=== PATIENT | male | born 1960 | race Caucasian/White ===

== ENCOUNTER 2016-10-21 05:29 | Inpatient (IN) | payer OTHER, MEDICARE ==
[~2016-10-21] VITALS: Ht 180.3 cm; Wt 180.0 kg
[~2016-10-21 05:29] MED LIST: ATOR10TA15 PO; FURO1TAB62 PO; GNP5TAB6 PO; LISI30TA4 PO; POTA99TA PO; TRAZ50TA12 PO; VERA40TA PO; ZOLO50TA PO
[2016-10-21] MEDS ORDERED: INSULIN HUMAN REGULAR 1,000 UNITS/10 ML VIAL SQ PRN (06:15)
[2016-10-21] MEDS ORDERED: CHLORHEXIDINE GLUCONATE 2 % 1 PACK (2 CLOTHS) TOPICAL PRN (06:15)
[2016-10-21] MEDS ORDERED: LACTATED RINGER'S 1000 ML IV PRN (06:15)
[2016-10-21] MEDS ORDERED: SODIUM CHLORID 0.9% 500 ML IV PRN (06:15)
[2016-10-21] MEDS ORDERED: METOPROLOL TARTRATE 25 MG TAB PO PRN (06:15)
[2016-10-21] MEDS ORDERED: POVIDONE IODINE 5% (ANTISEPSIS KIT) 4 APPLICATIONS EACH NARE PRN (06:15)
[2016-10-21 06:28] VITALS: BP 150/89; PULSE 79; RESP 18; TEMP 98.1; O2SAT 96
[2016-10-21] MEDS ORDERED: ONDANSETRON HCL 4 MG/2 ML VIAL IV PUSH SCH (06:30)
[2016-10-21] MEDS ORDERED: SCOPOLAMINE 1.5 MG PATCH T-DERMAL SCH (06:30)
[2016-10-21] MEDS ORDERED: ACETAMINOPHEN 1000 MG/100 ML VIAL IV SCH (06:30)
[2016-10-21] MEDS ORDERED: APREPITANT 40 MG CAP PO SCH (06:30)
[2016-10-21] MEDS ORDERED: metroNIDAZOLE 500 MG INJ 100 ML IV SCH (06:30)
[2016-10-21] MEDS ORDERED: ceFAZolin 2 GM PREMIX 50 ML IV SCH (06:30)
[2016-10-21] MEDS ORDERED: METOCLOPRAMIDE HCL 10 MG/2 ML VIAL ONE (07:10)
[2016-10-21] MEDS ORDERED: FAMOTIDINE 20 MG/2 ML VIAL ONE (07:10)
[2016-10-21] MEDS ORDERED: DEXAMETHASONE SOD PHOS 4 MG/ML VIAL ONE (07:10)
[2016-10-21] MEDS ORDERED: MIDAZOLAM HCL 2 MG/2 ML VIAL ONE (07:10)
[2016-10-21] MEDS ORDERED: BUPIVACAINE/EPINEPHRINE 0.25% PF 30 ML VIAL ONE (07:13)
[2016-10-21] MEDS ORDERED: METHYLENE BLUE 100 MG/10 ML VIAL OTHER ONE (09:00)
[2016-10-21] MEDS ORDERED: DO NOT ADM ANY ANTICOAGULANT DRUGS PRN (09:21)
[2016-10-21] MEDS ORDERED: *ONDANSETRON 4 MG VIAL PERIprocedural Use ONLY ONE (09:25)
[2016-10-21] MEDS ORDERED: fentaNYL CITRATE 250 MCG/5 ML AMP ONE (09:30)
[2016-10-21] MEDS ORDERED: *ENALAPRILAT 1.25 MG/ML VIAL PERIprocedural Use ONLY ONE ×2 (09:44→10:48)
[2016-10-21] MEDS ORDERED: PROMETHAZINE HCL 25 MG SUPP RECTAL ONE ×2 (10:02→11:00)
[2016-10-21] MEDS ORDERED: *LABETALOL HCL 100 MG/20 ML VIAL PERIprocedural Use ONLY ONE (10:06)
[2016-10-21] MEDS ORDERED: *morphine SULFATE 8 MG/ML PERIprocedure ONLY ONE (10:20)
[2016-10-21] MEDS ORDERED: LACTATED RINGER'S 1000 ML INJ 1,000 ML IV ONE (12:00)
[2016-10-21] MEDS ORDERED: NEOSTIGMINE 3 MG/3 ML SYR IV ONE (12:00)
[2016-10-21] MEDS ORDERED: PROPOFOL 200 MG/20 ML AMP IV ONE (12:00)
[2016-10-21] MEDS: 1/2 NS + KCL 20 MEQ INJ 1,000 ML IV SCH ×3 (12:50→20:31)
[2016-10-21] MEDS ORDERED: Post-op Orders (for Pharmacy) MISC OTHER ONE (13:00)
[2016-10-21] MEDS ORDERED: diphenhydrAMINE HCL 50 MG/ML VIAL IV PRN (13:00)
[2016-10-21] MEDS ORDERED: NALOXONE HCL 0.4 MG/ML AMP IV PRN (13:00)
[2016-10-21] MEDS ORDERED: diphenhydrAMINE HCL ELIXIR 12.5 MG/5 ML CUP PO PRN (13:00)
[2016-10-21] MEDS ORDERED: MORPHINE SULFATE 30 MG/30 ML PCA IV SCH (13:00)
[2016-10-21] MEDS ORDERED: ONDANSETRON HCL 4 MG/2 ML VIAL IV PRN (13:00)
[2016-10-21] MEDS ORDERED: SODIUM CHLORIDE 0.9% FLUSH 10 ML FLUSH IV FLUSH PRN (13:00)
[2016-10-21] MEDS: PCA - TOTAL MG MORPHINE DELIVERED PER SHIFT SCH ×2 (14:00→22:00)
[2016-10-21] MEDS: METOCLOPRAMIDE HCL 10 MG/2 ML VIAL IV PUSH SCH ×2 (15:19→18:32)
[2016-10-21] MEDS: metroNIDAZOLE 500 MG INJ 100 ML IV SCH ×2 (15:19→23:27)
[2016-10-21] MEDS: ENOXAPARIN SODIUM 40 MG/0.4 ML SYRINGE SQ SCH (15:20)
[2016-10-21 16:00] VITALS: BP 164/80; PULSE 72; RESP 17; TEMP 97.5; O2SAT 93
[2016-10-21] MEDS: RESP: ALBUTEROL 2.5 MG/3 ML NEB (SCH) INH ×2 (17:16→22:05)
[2016-10-21 20:30] VITALS: BP 158/83; PULSE 72; RESP 18; TEMP 96.6; O2SAT 97
[2016-10-21] MEDS: SODIUM CHLORIDE 0.9% FLUSH 10 ML FLUSH IV FLUSH SCH (20:31)
[2016-10-21 23:55] VITALS: BP 147/72; PULSE 78; RESP 20; TEMP 98.4; O2SAT 96
[2016-10-22] VITALS (8 sets, daily range): BP systolic 141–192; BP diastolic 73–93; PULSE 67–84; RESP 17–19; TEMP 96.7–98.5; O2SAT 94–98
[2016-10-22] MEDS: METOCLOPRAMIDE HCL 10 MG/2 ML VIAL IV PUSH SCH ×2 (00:25→06:18)
[2016-10-22] MEDS: RESP: ALBUTEROL 2.5 MG/3 ML NEB (SCH) INH ×7 (01:15→23:23)
[2016-10-22] MEDS: 1/2 NS + KCL 20 MEQ INJ 1,000 ML IV SCH ×5 (01:17→19:38)
[2016-10-22 05:35] LABS: AUTOMATED NEUTROPHIL # 10.6 TH/MM3 (1.8-7.7); BASOPHIL % 0.4 % (0.0-2.0); EOSINOPHIL % 0.1 % (0.0-4.0); HEMATOCRIT 42.2 % (39.0-51.0); HEMO FLAGS DIFF FINAL; LYMPH % 6.9 % (9.0-44.0); LYMPHOCYTE # 0.9 TH/MM3 (1.0-4.8); MEAN CELL VOLUME 83.3 FL (80.0-100.0); MEAN CORPUSCULAR HEMOGLOBIN 27.8 PG (27.0-34.0); MEAN CORPUSCULAR HGB CONC 33.4 % (32.0-36.0); MONO % 7.8 % (0.0-8.0); NEUT % 84.8 % (16.0-70.0); PLATELET COUNT 166 TH/MM3 (150-450); RED BLOOD COUNT 5.07 MIL/MM3 (4.50-5.90); RED CELL DISTRIBUTION WIDTH 13.4 % (11.6-17.2); WHITE BLOOD COUNT 12.6 TH/MM3 (4.0-11.0)
[2016-10-22 05:50] LABS: BICARBONATE 24.6 MEQ/L (21.0-32.0); MAGNESIUM 2.2 MG/DL (1.5-2.5); POTASSIUM 3.9 MEQ/L (3.5-5.1)
[2016-10-22] MEDS: PCA - TOTAL MG MORPHINE DELIVERED PER SHIFT SCH ×3 (06:00→22:00)
[2016-10-22] MEDS: metroNIDAZOLE 500 MG INJ 100 ML IV SCH (06:18)
[2016-10-22] MEDS: SODIUM CHLORIDE 0.9% FLUSH 10 ML FLUSH IV FLUSH SCH ×2 (08:13→19:34)
[2016-10-22] MEDS: PANTOPRAZOLE SOD 40 MG DELAYED RELEASE TAB PO SCH (08:42)
--- NOTE | 2016-10-22 09:43 | HHI.PR ---
Subjective Subjective Notes 56 yo male POD#1 VSG Sitting up in chair Voices no complaints Objective Vitals/I&O Vital Signs Date Time Temp Pulse Resp B/P Pulse Ox O2 Delivery O2 Flow Rate FiO2 10/22/16 08:57 18 10/22/16 08:49 94 21 10/22/16 03:57 98.5 67 141/73 10/21/16 13:00 Nasal Cannula 2 Labs Laboratory Tests Test 10/22/16 04:52 White Blood Count 12.6 Red Blood Count 5.07 Hemoglobin 14.1 Hematocrit 42.2 Mean Corpuscular Volume 83.3 Mean Corpuscular Hemoglobin 27.8 Mean Corpuscular Hemoglobin 33.4 Concent Red Cell Distribution Width 13.4 Platelet Count 166 Mean Platelet Volume 10.8 Neutrophils (%) (Auto) 84.8 Lymphocytes (%) (Auto) 6.9 Monocytes (%) (Auto) 7.8 Eosinophils (%) (Auto) 0.1 Basophils (%) (Auto) 0.4 Neutrophils # (Auto) 10.6 Lymphocytes # (Auto) 0.9 Monocytes # (Auto) 1.0 Eosinophils # (Auto) 0.0 Basophils # (Auto) 0.0 CBC Comment DIFF FINAL Differential Comment Sodium Level 137 Potassium Level 3.9 Chloride Level 104 Carbon Dioxide Level 24.6 Anion Gap 8 Blood Urea Nitrogen 12 Creatinine 0.80 Estimat Glomerular Filtration 101 Rate Random Glucose 89 Calcium Level 8.8 Magnesium Level 2.2 Cardiovascular: Regular Lungs: Clear Abdomen: Post-op tenderness Extremities: Perfused Wound Wound : Wound Location: Abdomen Appearance: Clean & Dry A/P Assessment and Plan Continue to increase fluids Continue with frequent ambulation and pulmonary exercise The exam, history, and the medical decision-making described in the above note were completed with the assistance of the mid-level provider. I reviewed and agree with the findings presented. I attest that I had a [id number] encounter with the patient on the same day, and personally performed and documented my assessment and findings in the medical record. Discharge Planning D/C home tomorrow Franklyn Coats Oct 22, 2016 09:42 Beny Olmstead MD Oct 28, 2016 13:02
[2016-10-22] MEDS ORDERED: FURO1TAB62 PO (09:49)
[2016-10-22] MEDS: ENOXAPARIN SODIUM 40 MG/0.4 ML SYRINGE SQ SCH (12:58)
[2016-10-22] MEDS: ACETAMINOPHEN 325MG/HYDROcodone 7.5MG/15ML UDC PO PRN ×2 (12:58→19:18)
[2016-10-22] MEDS ORDERED: METOCLOPRAMIDE HCL 10 MG/2 ML VIAL IV PUSH PRN (13:00)
--- NOTE | 2016-10-22 13:33 | MP ---
cc: REN OLMSTEAD DATE OF 1960 DATE OF OPERATION 10/21/2016 PREOPERATIVE DIAGNOSES Super obesity with a BMI of 55 complicated by essential hypertension, hypercholesterolemia, obstructive sleep apnea. POSTOPERATIVE DIAGNOSES Super obesity with a BMI of 55 complicated by essential hypertension, hypercholesterolemia, obstructive sleep apnea. PROCEDURE Laparoscopic vertical sleeve gastrectomy over a 36-[place]izen [place] ViSi[employer] bougie. SURGEON Ren Olmstead ANESTHESIA General endotracheal anesthesia ESTIMATED BLOOD LOSS Scan FINDINGS Fatty liver SPECIMENS None COMPLICATIONS None. PROCEDURE IN DETAIL The patient was brought to the operating room and placed on the operating table in supine position, bilateral sequential inflation device placed on lower extremities. General anesthesia was instituted. Antibiotics was initiated. The abdomen was prepped and draped sterilely. A point 15 cm distal to the xiphoid in the midline was anesthetized with 0.25% Marcaine with epinephrine. A skin incision was made, 5-mm OptiView port placed under direct vision and pneumoperitoneum created. Under direct vision, three 5-mm left upper quadrant, a 15-mm right upper quadrant, 5-mm right upper quadrant ports placed. Prior to placement of all ports the skin and peritoneum were anesthetized with 0.25% Marcaine with epinephrine. The patient was placed in reverse Trendelenburg position left side up, the Maeve-Flex retractor was placed. The left lobe of the liver was retracted. The vasculature along the greater curvature of the stomach was using harmonic scalpel starting a distance 5-cm proximal to the pylorus and carried towards the angle of His. The angle of His was taken down bluntly. Posterior ligamentous attachments were sharply . A 36-Citizen [place] ViSiGi bougie was placed at the start of the case, was placed on suction. Division of the stomach started 5 cm proximal to the pylorus and carried towards the angle of His to completely excise approximately 80% of the stomach. This was performed using an [employer] Flex stapler at the pylorus. The first firing was with a black load, followed by a green load and four gold loads. All staple loads were reinforced with SeamGuard. A distance of 2 cm was left from the angle incisura and the staple line and a distance of 1 cm left from the GE junction and the staple line. The pylorus was then occluded, methylene blue tinged saline was instilled. There was no evidence of extravasation. The gastrocolic ligament was then sutured to the posterior leaflet of the SeamGuard using a 2-0 Vicryl suture in a running manner. Bleeding points were controlled with Evicel. The excised stomach was removed from the peritoneal cavity through the 15-mm port site in an Endopouch. The fascia at the 15-mm port site was approximated with 0 Vicryl suture. The CO2 was then released, all ports were removed, all skin incisions closed with 4-0 Monocryl. The abdominal wall was cleaned. A sterile dressing was placed. The patient was awakened and taken to the recovery room. MD JELENA Douglas/KIKI /9:34 AM /1:29 PM
[2016-10-22] MEDS: ENALAPRILAT 1.25 MG/ML VIAL IV PUSH PRN (17:17)
[2016-10-22] MEDS ORDERED: SERTRALINE HCL 50 MG TAB PO SCH (21:00)
[2016-10-22] MEDS ORDERED: ATORVASTATIN 10 MG TAB PO SCH (21:00)
[2016-10-22] MEDS ORDERED: VERAPAMIL HCL 40 MG TAB PO SCH (21:00)
[2016-10-22] MEDS ORDERED: traZODone HCL 50 MG TAB PO SCH (21:00)
[2016-10-22] MEDS ORDERED: NON-FORMULARY DRUG (Potassium 1 TAB) PO SCH (21:00)
[2016-10-22] MEDS ORDERED: FUROSEMIDE 20 MG TAB PO SCH (21:00)
[2016-10-22] MEDS ORDERED: MELATONIN PO SCH (21:00)
[2016-10-22] MEDS ORDERED: LISINOPRIL 10 MG TAB PO SCH (21:00)
[2016-10-23] VITALS: BP 171/83; PULSE 70; RESP 18; TEMP 97.7; O2SAT 96
[2016-10-23] MEDS: RESP: ALBUTEROL 2.5 MG/3 ML NEB (SCH) INH ×3 (03:05→11:45)
[2016-10-23 04:00] VITALS: BP 171/91; PULSE 75; RESP 20; TEMP 99; O2SAT 95
[2016-10-23] MEDS: 1/2 NS + KCL 20 MEQ INJ 1,000 ML IV SCH ×3 (04:19→12:50)
[2016-10-23] MEDS: ENALAPRILAT 1.25 MG/ML VIAL IV PUSH PRN (04:58)
[2016-10-23] MEDS: PCA - TOTAL MG MORPHINE DELIVERED PER SHIFT SCH (05:32)
[2016-10-23] MEDS: ACETAMINOPHEN 325MG/HYDROcodone 7.5MG/15ML UDC PO PRN (06:18)
[2016-10-23 08:00] VITALS: BP 137/76; PULSE 79; RESP 17; TEMP 98.4; O2SAT 95
[2016-10-23] MEDS: PANTOPRAZOLE SOD 40 MG DELAYED RELEASE TAB PO SCH (08:36)
[2016-10-23] MEDS: SODIUM CHLORIDE 0.9% FLUSH 10 ML FLUSH IV FLUSH SCH (08:37)
[2016-10-23 08:41] VITALS: O2SAT 96
[2016-10-23 12:00] VITALS: BP 141/83; PULSE 76; RESP 15; TEMP 96; O2SAT 96
== END 2016-10-23 13:34 | disposition home or self-care (01) | DRG 621 ==
LOC: HSDC 05:29 → EDSTATUS 07:30 → HSDI 12:52 → N07B 13:36
PROVIDERS: ADMIT Surgery; ATTEND Surgery
PROC: 0DB64Z3 Excision of Stomach, Percutaneous Endoscopic Approach, Vertical (ICD-10-PCS; principal; 2016-10-21 07:23)
DX: E66.01 Morbid (severe) obesity due to excess calories (principal); K76.0 Fatty (change of) liver, not elsewhere classified; Z68.43 Body mass index [BMI] 50.0-59.9, adult; I10 Essential (primary) hypertension; E78.00 Pure hypercholesterolemia, unspecified; G47.33 Obstructive sleep apnea (adult) (pediatric)
CPT/HCPCS: 80048; 83735; 85025; 94150; 94640; 94664; J0131; J0690; J1100; J1650; J2250; J2270; J2405; J2710; J2765; J3010; J7120; J7613; J8501